=== PATIENT | female | born 1945 | race Caucasian/White ===

== ENCOUNTER 2019-10-16 08:44 | Outpatient (CLI) | payer MEDICARE, OTHER, SELFPAY ==
--- NOTE | 2019-10-16 | ECHO_ITS ---
Patient Info Name: Deepika Barrera Age: 74 years : 1945 Gender: Female Ht: 64 in Wt: 175 lbs BSA: 1.92 m2 HR: 70 bpm BP: 155 / 83 mmHg Technical Quality: Good Exam Date: 10/16/2019 9:14 AM Exam Location: [facility] Patient Status: Outpatient Admit Date: 10/16/2019 Staff Ordering Physician: Morteza Payne DO Farm Field Manager: Chacha Stanley RDCS Attending Provider: Morteza Payne DO Referring Physician: Elmer ARNETT; Exam Type: CA echo doppler color flow Study Info Indications R94.31 - Abnormal electrocardiogram ECG EKG R01.1 - Cardiac murmur, unspecified Complete two-dimensional, color flow and Doppler transthoracic echocardiogram is performed. Summary 1. Left ventricular chamber dimension is normal. 2. Left ventricular systolic function is normal, estimated at 60-65%. 3. The left ventricular diastolic function is grade I diastolic dysfunction. 4. E/e' 9 is minimally elevated. 5. Global longitudinal strain is normal at -18.8%. 6. There is mild mitral valve regurgitation. 7. There is mild to moderate tricuspid valve regurgitation. 8. Mild pulmonary hypertension, estimated pulmonary arterial systolic pressure is 41 mmHg. Left Ventricle E/e' 9 is minimally elevated. Global longitudinal strain is normal at -18.8%. Left ventricular chamber dimension is normal. Left ventricular systolic function is normal, estimated at 60-65%. The left ventricular diastolic function is grade I diastolic dysfunction. Right Ventricle Right ventricular chamber dimension is normal. Right ventricular systolic function is normal. Left Atria Left atrial chamber dimension is normal. Right Atria Right atrial chamber dimension is normal. Aortic Valve The aortic valve is trileaflet. There is no aortic valve stenosis. There is trace aortic valve regurgitation. Pulmonic Valve There is no pulmonic regurgitation. Mitral Valve There is no mitral valve stenosis. There is mild mitral valve regurgitation. Tricuspid Valve There is mild to moderate tricuspid valve regurgitation. Mild pulmonary hypertension, estimated pulmonary arterial systolic pressure is 41 mmHg. Pericardium/Pleural There is no pericardial effusion. Inferior Vena Cava Normal inferior vena cava with >50% collapse upon inspiration consistent with normal right atrial pressure, 5 mmHg. Aorta The aortic root size at the sinus of Valsalva is normal. Left Ventricular Outflow Tract Name Value Normal LVOT 2D LVOT Diameter 1.9 cm LVOT Doppler LVOT Peak Gradient 5 mmHg LVOT Mean Gradient 3 mmHg LVOT VTI 28 cm LVOT VTI/AV VTI Ratio 0.8 LVOT Stroke Volume 79 ml Pulmonic Valve Name Value Normal RVOT Doppler RVOT Peak Gradient 5 mmH
--- NOTE | ~2019-10-16 | US_ITS ---
EXAMINATION: US carotid duplex BI DATE: 10/16/2019 12:24 INDICATION: Abnormal lifeline screening. TECHNIQUE: Grayscale, color Doppler, and pulsed Doppler images of the cervical carotid arteries were obtained. The degree of vessel stenosis is placed in one of the following categories: normal, <50%, 5 0-69%, >=70% but less than near-occlusion, near-occlusion, or total occlusion. Note that percent sten osis relative to normal distal artery lumen diameter is indirectly measured from velocity measurement s as described by Anthony, et al. Radiology 2003; 229:340-346. Notes: Normal: Peak systolic velocity <125 centimeters/sec and no plaque <50%. Peak systolic velocity <125 ( EDV <40; ICA/CCA PSV ratio <2.0; used these factors only a tandem lesions or low cardiac output or co ntralateral disease) 50-69 %: PSV 125-230 (EDV 40-100; ratio 2-4) >= 70% but less than near occlusion: PSV greater than 230 (EDV > 100; ratio> 4.0) Near Occlusion: PSV that is variable; markedly narrowed lumen Occlusion: Absent flow on color/spectral Doppler and no lumen on lee scale. COMPARISON: No prior studies for comparison. FINDINGS: RIGHT: The right common carotid artery (CCA) peak systolic velocity (PSV) is 96 cm/s. The right internal car otid artery (ICA) PSV is 81 cm/s. The right ICA end-diastolic velocity (EDV) is 23 cm/s. The right IC A/CCA PSV ratio is 0.84. The external carotid artery (ECA) PSV is 83 cm/s. There is antegrade flow in the right vertebral artery. LEFT: The left CCA PSV is 76 cm/s. The left ICA PSV is 75 cm/s. The left ICA EDV is 25 cm/s. The left ICA/C CA PSV ratio is 1. The ECA PSV is 62 cm/s. There is antegrade flow in the left vertebral artery. IMPRESSION: 1. Less than 50% stenosis in the right internal carotid artery by sonographic criteria. 2. Less than 50% stenosis in the left internal carotid artery by sonographic criteria. Reviewed, dictated and finalized at location B. [employer] REPRESENTATIVE IMPRESSION: 1. Less than 50% stenosis in the right internal carotid artery by sonographic c logan. 2. Less than 50% stenosis in the left internal carotid artery by sonographic soraya ramires.
--- NOTE | 2019-10-16 09:00 | EST_ITS ---
Patient Info Name: Deepika Barrera Age: 74 years : 1945 Gender: Female Exam Date: 10/16/2019 10:03 AM Exam Location: [facility] Stress Patient Status: Outpatient Admit Date: 10/16/2019 Staff Ordering Physician: Kenna Chatman MD Attending Provider: Morteza Payne DO Exercise Technologist: Reggie Conroy RDCS, RT Exercise Physician: Morteza Payne DO Exam Type: CA stress test treadmill Study Info A treadmill exercise stress test was performed. Summary 1. 1. Negative Shawn exercise stress test for ischemic ST changes by ECG criteria. 2. 2. Reduced functional capacity, achieving 6 METs of workload. 3. 3. Appropriate HR response to exercise. 4. 4. Appropriate HR recovery at 1 minute post exercise. 5. 5. No imaging with stress testing. 6. 6. Patient informed of the above results. Protocol: Shawn Stress ECG Details Stage: REST Duration (min): 12 min : 48 sec Speed (mph): 0.0 Grade (%): 0 HR (bpm): 69 SBP (mmHg): 133 DBP (mmHg): 82 METS: --- Stage: REST Duration (min): 14 min : 45 sec Speed (mph): 0.0 Grade (%): 0 HR (bpm): 72 SBP (mmHg): 133 DBP (mmHg): 82 METS: --- Stage: STAGE 1 Duration (min): 1 min : 0 sec Speed (mph): 1.7 Grade (%): 10 HR (bpm): 105 SBP (mmHg): 133 DBP (mmHg): 82 METS: --- Stage: STAGE 1 Duration (min): 2 min : 0 sec Speed (mph): 1.7 Grade (%): 10 HR (bpm): 123 SBP (mmHg): 133 DBP (mmHg): 82 METS: --- Stage: STAGE 1 Duration (min): 3 min : 0 sec Speed (mph): 1.7 Grade (%): 10 HR (bpm): 134 SBP (mmHg): 133 DBP (mmHg): 82 METS: --- Stage: STAGE 2 Duration (min): 1 min : 0 sec Speed (mph): 2.5 Grade (%): 12 HR (bpm): 145 SBP (mmHg): 144 DBP (mmHg): 76 METS: --- Stage: STAGE 2 Duration (min): 1 min : 5 sec Speed (mph): 0.0 Grade (%): 0 HR (bpm): 146 SBP (mmHg): 144 DBP (mmHg): 76 METS: --- Stage: RECOVERY Duration (min): 0 min : 54 sec Speed (mph): 0.0 Grade (%): 0 HR (bpm): 112 SBP (mmHg): 131 DBP (mmHg): 80 METS: --- Stage: RECOVERY Duration (min): 1 min : 54 sec Speed (mph): 0.0 Grade (%): 0 HR (bpm): --- SBP (mmHg): 131 DBP (mmHg): 80 METS: --- Stage: RECOVERY Duration (min): 2 min : 8 sec Speed (mph): 0.0 Grade (%): 0 HR (bpm): --- SBP (mmHg): 131 DBP (mmHg): 80 METS: --- Rest HR: 72 bpm Peak HR: 145 bpm Rest Sys BP: 133 mmHg Peak Sys BP: 144 mmHg Max Pred HR: 146 bpm % Max Pred HR: 99 % Target HR: 124 bpm Max RPP: 20,880 bpm*mmHg Norris Score: -4 Termination Reason: Reached target heart rate or workload Cardiac Symptoms: Shortness of breath Max ST Seg Deviation: -1.70 mm Total Time: 4 min : 5 sec Rest Ruano BP: 82 mmHg Peak Ruano BP: 76 mmHg Angina Score: None Total METS: 6.5 Resting ECG Sinus rhythm. Stress ECG No ST changes. Arrhythmias None. Report Signatures Saritha
== END 2019-10-16 08:45 | disposition home or self-care (01) ==
LOC: ANHCARD 08:48
PROVIDERS: PCP Family Medicine; Visit Provider Internal Medicine Cardiovascular Disease
DX: R09.89 Other specified symptoms and signs involving the circulatory and respiratory systems (principal); I65.23 Occlusion and stenosis of bilateral carotid arteries; I08.1 Rheumatic disorders of both mitral and tricuspid valves; I27.20 Pulmonary hypertension, unspecified
CPT/HCPCS: 93017; 93306; 93880

== ENCOUNTER 2020-06-23 14:20 | Outpatient (CLI) | payer MEDICARE, OTHER, SELFPAY ==
--- NOTE | ~2020-06-23 | XR_ITS ---
EXAMINATION: XR shoulder RT min 2V DATE: 06/23/2020 14:57 INDICATION: Primary osteoarthritis, right shoulder. TECHNIQUE: 4 views of right shoulder were obtained. COMPARISON: None. FINDINGS: Bone alignment is normal. No fracture. There is mild osteoarthritis of glenohumeral joint a nd severe osteoarthritis of acromioclavicular joint. There is calcific tendinitis of the rotator cuff . IMPRESSION: 1. Polyarticular osteoarthritis. 2. Calcific tendinitis of the rotator cuff. Reviewed, dictated and finalized at location B.
--- NOTE | ~2020-06-23 | XR_ITS ---
XR_CERV2-3V_CR DATE: 06/23/2020 14:57 INDICATION: Neck pain TECHNIQUE: AP, open-mouth, odontoid, lateral and swimmer views COMPARISON: None FINDINGS: C1 and C2 are normally aligned and the odontoid process is intact. There is mild anterolisthesis at C2-3, C4-5 and C5-6 and C6-7. No fracture or dislocation or locked facet or prevertebral soft tissue swelling. There is minimal lower cervical uncovertebral joint spurring and generalized apophyseal joint spurrin g. Diffuse idiopathic skeletal hyperostosis of the thoracic spine. IMPRESSION: Degenerative changes; no fracture or dislocation Reviewed, dictated and finalized at Location A. Reviewed, dictated and finalized at location A.
== END 2020-06-23 14:21 | disposition home or self-care (01) ==
PROVIDERS: PCP Family Medicine; Visit Provider Family Medicine
DX: M54.2 Cervicalgia (principal); M19.011 Primary osteoarthritis, right shoulder; M75.31 Calcific tendinitis of right shoulder
CPT/HCPCS: 72040; 73030

== ENCOUNTER 2020-07-15 14:49 | Outpatient (CLI) | payer MEDICARE, OTHER, SELFPAY ==
--- NOTE | ~2020-07-15 | MM_ITS ---
EXAMINATION: MM screening christofer BI w ingrid HISTORY: Screening TECHNIQUE: Craniocaudal and mediolateral oblique 3-D tomosynthesis images were obtained and synthetic 2-D images were generated. CAD analysis was submitted and interpreted. COMPARISON: Comparison to multiple prior studies sequentially, with oldest reviewed study dated 03/08. BREAST PARENCHYMAL COMPOSITION: There are scattered areas of fibroglandular density. FINDINGS: There is no evidence of suspicious mass, calcification, or architectural distortion to sugg est malignancy in either breast. There has been no suspicious interval change. IMPRESSION: 1. No mammographic evidence of malignancy. 2. Recommend routine screening mammography in one year. BI-RADS Category 1: Negative Reviewed, dictated and finalized at location A.
--- NOTE | ~2020-07-15 | DEXA_ITS ---
Bone Density Report Name: Deepika Barrera Age: 74 Sex: Female Ethnicity: White Date of : 1945 Indication: postmenopausal; prior fracture; cancer; hysterectomy; Referring Provider: ABDIRAHMAN CISNEROS Study: Bone densitometry was performed. Exam Date: July 15, 2020 Accession number: [id number] Bone Density: Region BMD T-score Z-score Classification AP Spine (L1-L4) 1.026 -0.2 2.2 Normal Femoral Neck (Left) 0.759 -0.8 1.3 Normal Total Hip (Left) 0.946 0.0 1.8 Normal Total Hip Bilateral Avg 0.953 0.1 1.9 Normal Femoral Neck (Right) 0.768 -0.7 1.3 Normal Total Hip (Right) 0.960 0.2 1.9 Normal World Health Organization criteria for BMD impression classify patients as: Normal (T-score at or above -1.0), Osteopenia (T-score between -1.0 and -2.5), or Osteoporosis (T-score at or below -2.5). 10-year Fracture Risk: FRAX not reported because: All T-scores for Spine Total, Hip Total, Femoral Neck at or above -1.0 Previous Exams: Region Exam Age BMD T-score BMD Change BMD Change Date g/cm2 vs Baseline vs Previous AP Spine(L1-L4) 07/15/2020 74 1.026 -0.2 -0.005(-0.5%)# -0.005(-0.5%)# 01/21/2012 66 1.031 -0.1 Total Hip(Left) 07/15/2020 74 0.946 0.0 -0.020(-2.1%)# -0.020(-2.1%)# 01/21/2012 66 0.967 0.2 Total Hip(Right) 07/15/2020 74 0.960 0.2 0.001(0.1%)# 0.001(0.1%)# 01/21/2012 66 0.959 0.1 *Denotes significance at 95% confidence level, LSC for AP Spine = 0.022 g/cm2, LSC for Total Hip = 0.027 g/cm2 Clinical Information Provided by Patient: Has had a low trauma fracture Has the following medical conditions: Cancer, Hysterectomy Patient maximum height was 64 Menopause Age: 45 No regular weight bearing exercise Onset of menses at age 15 Number of children 4 Impression: The patient has normal bone mass. The patient has risk factors, including: previous fracture. No significant bone loss was observed. Discussion: BONE DENSITY IS ABOVE THE MINIMUM DESIRABLE LEVEL AT ALL SKELETAL SITES TESTED. This patient?s bone mineral density is above the minimum desirable level (T-score -1.0 or better) at all sites measured. The patient should follow a healthful lifestyle (good nutrition with adequate calcium and vitamin D, and appropriate weight-bearing exercise). Follow-Up: Consider repeating this study in 5 years or sooner if there is some new clinical indication. Reported by: GEORGIANA on 07/15/2020 3:18:00 PM.
== END 2020-07-15 14:50 | disposition home or self-care (01) ==
LOC: ANHIMG 14:52
PROVIDERS: PCP Family Medicine; Visit Provider Family Medicine
DX: Z12.31 Encounter for screening mammogram for malignant neoplasm of breast (principal); Z78.0 Asymptomatic menopausal state
CPT/HCPCS: 77063; 77067; 77080

== ENCOUNTER 2020-08-05 11:03 | Outpatient (CLI) | payer MEDICARE, OTHER, SELFPAY ==
[2020-08-05 12:08] LABS: Hematocrit 39.3 % (37.0-47.0); Hemoglobin 13.4 g/dL (12.0-15.0); Mean Corpuscular HGB Conc 34.1 g/dl (32-36); Mean Corpuscular Hemoglobin 32.8 pg (26-34); Mean Corpuscular Volume 96.3 fl (80-100); Mean Platelet Volume 10.3 fl (7.4-10.4); Platelet Count Result 270 k/mm3 (150-375); Red Blood Count 4.08 M/mm3 (4.2-5.4); Red Cell Distribution Width 11.8 % (11.5-14.5); White Blood Count 4.9 K/mm3 (4.5-10.0)
[2020-08-05 12:19] LABS: Alanine Aminotransferase 21 U/L (4-35); Albumin Level 4.2 g/dL (3.5-5.1); Alkaline Phosphatase 41 U/L (38-126); Anion Gap 5 mmol/L (8-16); Aspartate Amino Transferase 30 U/L (14-36); Bilirubin,Total 0.6 mg/dL (0.2-1.3); Blood Urea Nitrogen 17 mg/dL (7-17); Carbon Dioxide 29 mmol/L (22-30); Chloride 103 mmol/L (98-107); Cholesterol 195 mg/dL (0-200); Estimated Glomerular Filt Rate > 60; Glucose 121 mg/dL (65-105); HDL Direct 45 mg/dL; Potassium 3.9 mmol/L (3.4-5.0); Sodium 137 mmol/L (137-145); Triglycerides 173 mg/dL (<150)
[2020-08-05 12:30] LABS: LDL Cholesterol Direct 102 mg/dL
== END 2020-08-05 11:04 | disposition home or self-care (01) ==
LOC: ANHLAB 11:07
PROVIDERS: PCP Family Medicine; Visit Provider Family Medicine
DX: E78.2 Mixed hyperlipidemia (principal); I10 Essential (primary) hypertension; E55.9 Vitamin D deficiency, unspecified
CPT/HCPCS: 36415; 80053; 80061; 82306; 85027

== ENCOUNTER 2021-01-11 09:31 | Outpatient (CLI) | payer MEDICARE, OTHER, SELFPAY | END 2021-01-11 09:32 | disposition home or self-care (01) | LOC: ANHCOVIDVC 09:31 | PROVIDERS: PCP Family Medicine; Visit Provider Family Medicine | DX: Z23 Encounter for immunization (principal) | CPT/HCPCS: 0001A; 91300 ==

== ENCOUNTER 2021-02-01 09:32 | Outpatient (CLI) | payer MEDICARE, OTHER, SELFPAY | END 2021-02-01 09:33 | disposition home or self-care (01) | LOC: ANHCOVIDVC 09:33 | PROVIDERS: PCP Family Medicine | DX: Z23 Encounter for immunization (principal) | CPT/HCPCS: 0002A; 91300 ==

== ENCOUNTER 2021-05-31 16:50 | Outpatient (CLI) | payer MEDICARE, OTHER, SELFPAY ==
--- NOTE | ~2021-05-31 | XR_ITS ---
EXAMINATION: XR ribs RT 2V w CXR 2V EXAM DATE: 05/31/2021 17:13 INDICATION: Fall, right rib pain. Right chest pain. TECHNIQUE: Frontal projection of the upper right ribs, frontal projection of the lower right ribs, ob lique projection of the right ribs, frontal and lateral chest x-ray(s) for interpretation. Comparison is made to prior examination from 02/07/2018. FINDINGS: There is an acute right 4th rib fracture identified laterally on the oblique projection.. There is no soft tissue abnormality seen. Probable small amount of bibasilar atelectasis., pneumothor ax or pleural effusion suspected. There is aortic arteriosclerosis. IMPRESSION: 1. Acute right 4th rib fracture. 2. Probable bibasilar subsegmental atelectasis. Reviewed, dictated and finalized at location A.
== END 2021-05-31 16:51 | disposition home or self-care (01) ==
LOC: ANHIMG 16:53
PROVIDERS: PCP Family Medicine; Visit Provider Physician Assistant
DX: R07.81 Pleurodynia (principal); S22.31XA Fracture of one rib, right side, initial encounter for closed fracture; X58.XXXA Exposure to other specified factors, initial encounter
CPT/HCPCS: 71046; 71100

== ENCOUNTER → 2021-10-11 02:42 | Outpatient (CLI) | payer MEDICARE, OTHER, SELFPAY ==
[2021-10-11 17:58] LABS: SARS-CoV-2 RNA PCR Negative
== END ==
PROVIDERS: Nurse Practitioner Gerontology; PCP Family Medicine; Visit Provider Family Medicine
DX: R68.89 Other general symptoms and signs (principal); Z20.822 Contact with and (suspected) exposure to COVID-19
CPT/HCPCS: C9803; U0003; U0005

== ENCOUNTER 2022-08-15 12:53 | Outpatient (CLI) | payer MEDICARE, OTHER, SELFPAY ==
--- NOTE | ~2022-08-15 | MM_ITS ---
EXAMINATION: MM screening christofer BI w ingrid HISTORY: Screening mammogram, family history of breast cancer in her sister. TECHNIQUE: Craniocaudal and mediolateral oblique 3-D tomosynthesis images were obtained and synthetic 2-D images were generated. CAD analysis was submitted and interpreted. COMPARISON: 07/15/2020, 01/23/2019, 12/26/2017 BREAST PARENCHYMAL COMPOSITION: There are scattered areas of fibroglandular density. FINDINGS: No suspicious mass, calcification, or architectural distortion are identified in either ginette ast to suggest malignancy. There has been no suspicious interval change. IMPRESSION: 1. No mammographic evidence of malignancy. 2. Recommend routine screening mammography in one year. BI-RADS Category 1: Negative Reviewed, dictated and finalized at location A.
== END 2022-08-15 12:54 | disposition home or self-care (01) ==
PROVIDERS: PCP Family Medicine; Visit Provider Family Medicine
DX: Z12.31 Encounter for screening mammogram for malignant neoplasm of breast (principal)
CPT/HCPCS: 77063; 77067

== ENCOUNTER 2022-08-29 12:35 | Outpatient (CLI) | payer MEDICARE, OTHER, SELFPAY ==
--- NOTE | 2022-08-29 12:55 | ECHO_ITS ---
Patient Info Name: Deepika Barrera Age: 77 years : 1945 Gender: Female Ht: 64 in Wt: 195 lbs BSA: 2.03 m2 HR: 68 bpm BP: 138 / 81 mmHg Technical Quality: Fair Exam Date: 08/29/2022 1:43 PM Exam Location: [facility] Patient Status: Outpatient Admit Date: 08/29/2022 Staff Ordering Physician: Morteza Payne DO Anesthetist: Jasmina Brantley RDCS Attending Provider: Morteza Payne DO Referring Physician: Elmer ARNETT; Exam Type: CA echo dop color flow w con Study Info Indications I10 - Essential (primary) hypertension Complete two-dimensional, color flow and Doppler transthoracic echocardiogram is performed. Summary 1. Complete two-dimensional, color flow and Doppler transthoracic echocardiogram is performed. 2. Left ventricular chamber dimension is normal. 3. Left ventricular systolic function is normal, estimated at 65-70%. 4. There is mildly increased left ventricular wall thickness. 5. The left ventricular diastolic function is grade I diastolic dysfunction. 6. E/e' 9 is minimally elevated. 7. There is trace mitral valve regurgitation. 8. There is mild tricuspid valve regurgitation. 9. No pulmonary hypertension, estimated pulmonary arterial systolic pressure is 29 mmHg. Left Ventricle E/e' 9 is minimally elevated. Left ventricular chamber dimension is normal. Left ventricular systolic function is normal, estimated at 65-70%. There is mildly increased left ventricular wall thickness. The left ventricular diastolic function is grade I diastolic dysfunction. Right Ventricle Right ventricular systolic function is normal and with normal TAPSE 2.1 cm. Right ventricular chamber dimension is normal. Left Atria Left atrial chamber dimension is normal. Right Atria Right atrial chamber dimension is normal. Aortic Valve The aortic valve is trileaflet. There is no aortic valve stenosis. There is no aortic valve regurgitation. Pulmonic Valve There is no pulmonic regurgitation. Mitral Valve There is no mitral valve stenosis. There is trace mitral valve regurgitation. Tricuspid Valve There is mild tricuspid valve regurgitation. No pulmonary hypertension, estimated pulmonary arterial systolic pressure is 29 mmHg. Pericardium/Pleural There is no pericardial effusion. Inferior Vena Cava Normal inferior vena cava with >50% collapse upon inspiration consistent with normal right atrial pressure, 5 mmHg. Aorta The aortic root size at the sinus of Valsalva is normal. Left Ventricular Outflow Tract Name Value Normal LVOT 2D LVOT Diameter 2.02 cm LVOT Doppler LVOT Peak Gradient 5 mmHg LVOT Mean Gradient 3 mmHg LVOT VTI 24.80 cm LVOT VTI/AV VTI Ratio 0.76 LVOT Stroke Volume 79.43 ml LVOT CO 14.65 l/min LVOT CI 7.20 L/min/m2 Pulmonic Valve Name Value Normal
== END 2022-08-29 12:36 | disposition home or self-care (01) ==
PROVIDERS: PCP Family Medicine; Visit Provider Internal Medicine Cardiovascular Disease
DX: I10 Essential (primary) hypertension (principal); I08.1 Rheumatic disorders of both mitral and tricuspid valves
CPT/HCPCS: C8929

== ENCOUNTER 2023-12-17 00:33 | Day surgery (SDC) | payer MEDICARE, OTHER, SELFPAY ==
[2023-11-20 14:59] VITALS: BMI 33.0
--- NOTE | 2023-12-13 10:04 | SUR.PREOP ---
Patient called regarding upcoming procedure. Reviewed preop instructions, appointment times, and procedure prep.
--- NOTE | 2023-12-16 15:15 | PM.HPGS ---
History of Present Illness History of Present Illness Consent: Risks, benefits, and alternatives have been discussed and questions answered. Patient agrees to proceed with procedure. Chief complaint: neoplasm screening Narrative: Deepika Barrera is a 78 year old female Referred for colon cancer screening. Review of Systems Review of Systems: All systems reviewed & are unremarkable except as noted in HPI and below PMFSH Past Medical History Medical History Abnormal ECG Benign essential HTN Cancer Elevated cholesterol with high triglycerides Elevated lipids GERD (gastroesophageal reflux disease) MDD (major depressive disorder), recurrent episode, moderate Surgical History Surgical History History of total abdominal hysterectomy and bilateral salpingo-oophorectomy Family History Family History Father Family history of premature coronary heart disease, Onset Age: 52 Patient's father is Mother Family history of malignant neoplasm of breast in first degree relative Other Hypertension Social History Social History Social History: Smoking packs per day: 1 Smoking cigarettes per day: 20.0 Years smoked: 15 Smoking pack-years: 15.00 Smoking status: Former smoker Tobacco type: cigarettes Second hand tobacco smoke exposure: No Smoking end date: 11/11/89 Alcohol intake: current Substance use: never Substance use type: does not use Lack of Transportation: No Lack of Food: Never True Current Housing: I Have Housing Concerned About Future Housing: No Difficulty Paying Gas/Electric Bills: No Difficulty Paying for Meds: No Currently Unemployed: YES Education: Don't Know Difficulty w/ Childcare or Family Care: No Living arrangements: alone Occupation/Education: retired Gender identity (if verbalized by the patient): Female Sexual Orientation (if Verbalized by the Patient): Straight or Heterosexual Spiritual care concerns: No Meds Home Medications and Allergies Home Medications Medication Instructions Recorded Confirmed Type cholecalciferol (vitamin D3) 125 125 mcg PO DAILY 08/09/22 12/17/23 History mcg (5,000 unit) capsule amlodipine 5 mg tablet 5 mg PO DAILY #90 tabs 05/08/23 12/17/23 Rx atenolol 50 mg tablet 50 mg PO DAILY #90 tabs 09/10/23 12/17/23 Rx atorvastatin 20 mg tablet 20 mg PO DAILY #100 tabs 09/20/23 12/17/23 Rx omeprazole 40 mg capsule,delayed 40 mg PO DAILY #100 caps 09/20/23 12/17/23 Rx release venlafaxine 150 mg 150 mg PO DAILY #90 caps 11/12/23 12/17/23 Rx capsule,extended release 24 hr ascorbic acid (vitamin C) 500 mg 500 mg PO DAILY 11/20/23 12/17/23 History tablet vitamin B complex (B 1 tablet PO DAILY 11/20/23 12/17/23 History Complex-Vitamin B12 tablet) telmisartan 40 1 tablet PO BID #180 tabs 12/02/23 12/17/23 Rx mg-hydrochlorothiazide 12.5 mg tablet Allergies Allergy/AdvReac Type Severity Reaction Status Date / Time lisinopril Allergy Intermediate cough Verified 12/17/23 07:21 Exam Resp: Auscultation: clear to auscultation bilaterally Cardio: Rate: regular rate Rhythm: regular rhythm GI: GI Palp: Yes Soft to palpation and No Tenderness to palpation present (GI) Assessment and Plan Assessment and plan (1) Colon cancer screening: Code(s): Z12.11 - Encounter for screening for malignant neoplasm of colon Status: Acute Assessment and Plan: Colonoscopy with possible biopsy or polypectomy or cautery or injection of substances.
[2023-12-17 07:23] VITALS: BP 121/66; PULSE 63; RESP 16; TEMP 36.6; O2SAT 98
[2023-12-17] MEDS: LACTATED RINGERS 1,000 ML 150 ML IV CONT (07:30)
--- NOTE | 2023-12-17 08:13 | WPDANESEPPF ---
Anes - Initial Pre Proc Eval Procedure: Operation Date: 12/17/23 08:30 Proposed Procedures p Screening Colonoscopy - Bossman Javed MD Date/Time: 12/17/23 08:13 Surgeon: Bossman Javed MD Pre Op Diagnosis: neoplasm screening Patient Data Age: 78 Gender: F Height: 1.63 m Weight: 85.1 kg Last Vital Signs Temp 97.9 F 12/17/23 07:23 Pulse 63 12/17/23 07:23 Resp 16 12/17/23 07:23 BP 121/66 12/17/23 07:23 Pulse Ox 98 12/17/23 07:23 O2 Del Method Room Air 12/17/23 07:23 Allergies Allergy/AdvReac Type Severity Reaction Status Date / Time lisinopril Allergy Intermediate cough Verified 12/17/23 07:21 Home Medications Medication Instructions Recorded Confirmed Type cholecalciferol (vitamin D3) 125 125 mcg PO DAILY 08/09/22 12/17/23 History mcg (5,000 unit) capsule amlodipine 5 mg tablet 5 mg PO DAILY #90 tabs 05/08/23 12/17/23 Rx atenolol 50 mg tablet 50 mg PO DAILY #90 tabs 09/10/23 12/17/23 Rx atorvastatin 20 mg tablet 20 mg PO DAILY #100 tabs 09/20/23 12/17/23 Rx omeprazole 40 mg capsule,delayed 40 mg PO DAILY #100 caps 09/20/23 12/17/23 Rx release venlafaxine 150 mg 150 mg PO DAILY #90 caps 11/12/23 12/17/23 Rx capsule,extended release 24 hr ascorbic acid (vitamin C) 500 mg 500 mg PO DAILY 11/20/23 12/17/23 History tablet vitamin B complex (B 1 tablet PO DAILY 11/20/23 12/17/23 History Complex-Vitamin B12 tablet) telmisartan 40 1 tablet PO BID #180 tabs 12/02/23 12/17/23 Rx mg-hydrochlorothiazide 12.5 mg tablet Patient hx anesthesia problems: none Family hx anesthesia problems: none Results Review: All pre-operative results and documents have been reviewed as part of the pre-operative evaluation. [facility] Past Medical History Medical History Abnormal ECG Benign essential HTN Cancer Elevated cholesterol with high triglycerides Elevated lipids GERD (gastroesophageal reflux disease) MDD (major depressive disorder), recurrent episode, moderate Surgical History Surgical History History of total abdominal hysterectomy and bilateral salpingo-oophorectomy Family History Family History Father Family history of premature coronary heart disease, Onset Age: 52 Patient's father is Mother Family history of malignant neoplasm of breast in first degree relative Other Hypertension Social History Social History (Updated 10/07/23 @ 13:13 by Kyleigh King) Social History: Smoking packs per day: 1 Smoking cigarettes per day: 20.0 Years smoked: 15 Smoking pack-years: 15.00 Smoking status: Former smoker Tobacco type: cigarettes Second hand tobacco smoke exposure: No Smoking end date: 11/11/89 Alcohol intake: current Substance use: never Substance use type: does not use Lack of Transportation: No Lack of Food: Never True Current Housing: I Have Housing Concerned About Future Housing: No Difficulty Paying Gas/Electric Bills: No Difficulty Paying for Meds: No Currently Unemployed: YES Education: Don't Know Difficulty w/ Childcare or Family Care: No Living arrangements: alone Occupation/Education: retired Gender identity (if verbalized by the patient): Female Sexual Orientation (if Verbalized by the Patient): Straight or Heterosexual Spiritual care concerns: No Anes - Eval Final PreProcedure Day of Procedure 12/17/23 08:13 Patient weight: obese Heart: regular rate and rhythm Lungs: clear to auscultation Airway: Mallampati scale Neurological: alert and oriented Last oral intake: >/= 8 hours ASA classification: III Emergent: no Anesthetic plan: proceed Anesthesia type and monitoring: general GIVS and standard monitoring Results Review: All pre-operative results and documents have been reviewed as part of
[2023-12-17 08:56] VITALS: BP 95/62; PULSE 65; RESP 18; O2SAT 98
[2023-12-17 09:06] VITALS: BP 106/64; PULSE 62; RESP 12; O2SAT 100
[2023-12-17 09:16] VITALS: BP 119/54; PULSE 60; RESP 18; O2SAT 100
== END 2023-12-17 09:30 | disposition home or self-care (01) ==
PROVIDERS: PCP Family Medicine; Visit Provider Internal Medicine Gastroenterology
PROC: 0DJD8ZZ Inspection of Lower Intestinal Tract, Via Natural or Artificial Opening Endoscopic (ICD-10-PCS; CPT 45378; principal; 2023-12-17 08:30)
DX: Z12.11 Encounter for screening for malignant neoplasm of colon (principal); K57.30 Diverticulosis of large intestine without perforation or abscess without bleeding; K64.8 Other hemorrhoids; I10 Essential (primary) hypertension; E78.5 Hyperlipidemia, unspecified; K21.9 Gastro-esophageal reflux disease without esophagitis; F33.1 Major depressive disorder, recurrent, moderate; Z87.891 Personal history of nicotine dependence; E66.9 Obesity, unspecified; Z68.32 Body mass index [BMI] 32.0-32.9, adult
CPT/HCPCS: G0121; J2704; J7120

== ENCOUNTER 2023-12-26 07:57 | Outpatient (CLI) | payer MEDICARE, OTHER, SELFPAY ==
--- NOTE | ~2023-12-26 | MM_ITS ---
EXAMINATION: MM screening christofer BI w ingrid HISTORY: Screening mammogram TECHNIQUE: Craniocaudal and mediolateral oblique 3-D tomosynthesis images were obtained and synthetic 2-D images were generated. CAD analysis was submitted and interpreted. COMPARISON: 08/15/2022, 07/15/2020, 01/23/2019 BREAST PARENCHYMAL COMPOSITION:Not Dense. There are scattered areas of fibroglandular density. FINDINGS: No suspicious mass, calcification, or architectural distortion are identified in either ginette ast to suggest malignancy. There has been no suspicious interval change. IMPRESSION: No mammographic evidence of malignancy. Recommend routine screening mammography in one year. BI-RADS Category 1: Negative Reviewed, dictated and finalized at location . LER
--- NOTE | ~2023-12-26 | DEXA_ITS ---
Bone Density Report Name: AYO ALEMAN Age: 78 Sex: Female Ethnicity: White Date of : 1945 Indication: postmenopausal; screening for osteoporosis; height loss; cancer; Referring Provider: MADI ROBBINS Study: Bone densitometry was performed. Exam Date: December 26, 2023 Accession number: [id number] Bone Density: Region BMD T-score Z-score Classification AP Spine(L1-L4) 0.985 -0.6 2.0 Normal Femoral Neck (Left) 0.738 -1.0 1.2 Normal Total Hip (Left) 1.023 0.7 2.6 Normal Femoral Neck (Right) 0.769 -0.7 1.5 Normal Total Hip (Right) 1.009 0.6 2.5 Normal Total Hip Mean 1.016 0.7 2.6 Normal World Health Organization criteria for BMD impression classify patients as: Normal (T-score at or above -1.0), Osteopenia (T-score between -1.0 and -2.5), or Osteoporosis (T-score at or below -2.5). 10-year Fracture Risk: FRAX not reported because: All T-scores for Spine Total, Hip Total, Femoral Neck at or above -1.0 Previous Exams: Region Exam Age BMD T-score BMD Change BMD Change Date g/cm2 vs Baseline vs Previous AP Spine (L1-L4) 12/26/2023 78 0.985 -0.6 -0.041 (-4.0%) -0.041 (-4.0%) 07/15/2020 74 1.026 -0.2 Total Hip(Left) 12/26/2023 78 1.023 0.7 0.076 (8.1%)* 0.076 (8.1%)* 07/15/2020 74 0.946 0.0 Total Hip(Right) 12/26/2023 78 1.009 0.6 0.049 (5.1%)* 0.049 (5.1%)* 07/15/2020 74 0.960 0.2 *Denotes significance at 95% confidence level, LSC for AP Spine = 0.022 g/cm2, LSC for Total Hip = 0.027 g/cm2 Clinical Information Provided by Patient: Has used the following medications: Vitamin D Has the following medical conditions: Cancer Patient maximum height was 64.75 Menopause Age: 45 No regular weight bearing exercise Drinks caffeinated beverages Onset of menses at age 14 Number of children 4 Impression: The patient has normal bone mass. The BMD for the AP Spine (L1-L4) decreased, changing by -4.0% since the last DXA exam. Discussion: BONE DENSITY IS ABOVE THE MINIMUM DESIRABLE LEVEL AT ALL SKELETAL SITES TESTED. This patient?s bone mineral density is above the minimum desirable level (T-score -1.0 or better) at all sites measured. The patient should follow a healthful lifestyle (good nutrition with adequate calcium and vitamin D, and appropriate weight-bearing exercise). Follow-Up: Consider repeating this study in 3 to 4 years to reassess this patient's status, or sooner if there is some new
== END 2023-12-26 07:58 | disposition home or self-care (01) ==
PROVIDERS: PCP Family Medicine; Visit Provider Physician Assistant
DX: Z12.31 Encounter for screening mammogram for malignant neoplasm of breast (principal); Z78.0 Asymptomatic menopausal state
CPT/HCPCS: 77063; 77067; 77080

== ENCOUNTER 2025-04-13 14:37 | Outpatient (CLI) | payer MEDICARE, OTHER, SELFPAY ==
--- NOTE | ~2025-04-13 | MM_ITS ---
EXAMINATION: MM screening christofer BI w ingrid HISTORY: Screening mammogram TECHNIQUE: Craniocaudal and mediolateral oblique 3-D tomosynthesis images were obtained and synthetic 2-D images were generated. CAD analysis was submitted and interpreted. COMPARISON: 12/26/2023 through 12/26/2017 BREAST PARENCHYMAL COMPOSITION: There are scattered areas of fibroglandular density. FINDINGS: There is no evidence of suspicious mass, calcification, or architectural distortion to sugg est malignancy in either breast. There has been no suspicious interval change. IMPRESSION: 1. No mammographic evidence of malignancy. 2. Recommend routine screening mammography in one year. BI-RADS Category 1: Negative Reviewed, dictated and finalized at location B.
== END 2025-04-13 14:38 | disposition home or self-care (01) ==
PROVIDERS: PCP Family Medicine; Visit Provider Physician Assistant
DX: Z12.31 Encounter for screening mammogram for malignant neoplasm of breast (principal)
CPT/HCPCS: 77063; 77067